=== PATIENT | female | born 1930 | race Caucasian/White ===

== ENCOUNTER → 2017-10-05 | Outpatient (CLI) | payer OTHER ==
[2017-10-05 18:26] LABS: BASOPHILS # (AUTO) 0.1 X10^3/uL (0.0-0.1); BASOPHILS % (AUTO) 0.5 % (0.2-1.0); EOSINOPHILS # (AUTO) 0.2 x10^3/uL (0.0-0.2); EOSINOPHILS % (AUTO) 1.4 % (0.9-2.9); HEMATOCRIT 36.5 % (36.0-47.0); LYMPHOCYTES # (AUTO) 1.4 X10^3/uL (1.3-2.9); LYMPHOCYTES % (AUTO) 11.3 % (21.0-51.0); MEAN CORPUSCULAR HEMOGLOBIN 29.7 pg (27.0-34.0); MEAN CORPUSCULAR HGB CONC 32.8 g/dL (33.0-35.0); MEAN CORPUSCULAR VOLUME 90.5 fL (80.0-100.0); MEAN PLATELET VOLUME 8.1 fL (7.4-11.0); MONOCYTES # (AUTO) 1.1 x10^3/uL (0.3-0.8); MONOCYTES % (AUTO) 8.5 % (0.0-13.0); NEUTROPHILS # (AUTO) 10.1 x10^3/uL (2.2-4.8); NEUTROPHILS % (AUTO) 78.3 % (42.0-75.0); PLATELET COUNT 219 X10^3/uL (150.0-450.0); RED BLOOD COUNT 4.03 X10^6/uL (3.5-5.4); RED CELL DISTRIBUTION WIDTH 13.4 % (11.6-16.5); WHITE BLOOD COUNT 12.9 X10^3/uL (3.6-10.0)
[2017-10-05 18:34] LABS: ALANINE AMINOTRANSFERASE 21 Units/L (12-78); ALBUMIN 4.2 g/dL (3.4-5.0); ALKALINE PHOSPHATASE 61 Units/L (46-116); ASPARTATE AMINO TRANSFERASE 22 Units/L (15-37); BLOOD UREA NITROGEN 11 mg/dL (7-18); CALCIUM 9.8 mg/dL (8.5-10.1); CARBON DIOXIDE 26.6 mmol/L (21-32); CHLORIDE 102 mmol/L (98-107); COR NA(FOR HYPERGLY) 140 mmol/L (136-145); CREATININE 1.15 mg/dL (0.55-1.02); SODIUM 139 mmol/L (136-145); TOTAL PROTEIN 8.4 g/dL (6.4-8.2); eGFR BLACK RACES 57 (>60); eGFR NON BLACK RACES 47 (>60)
[2017-10-05 18:52] LABS: HEMOGLOBIN A1C 6.2 % (4.5-6.2)
[2017-10-05 19:00] LABS: ERYTHROCYTE SEDIMENTATION RATE 34 MM/HOUR (0-20)
[2017-10-05 19:46] LABS: MYCOPLASMA PNEUMONIAE IGM AB NEGATIVE (NEGATIVE)
--- NOTE | 2017-10-06 06:01 | RAD ---
Examination: Chest, PA and lateral views History: SOB, COPD Comparison reference: None Findings: The heart is upper normal in both diameters, the aorta dilated. Pulmonary vessels are promi nent with a diffuse interstitial increase throughout the lungs. There is no evidence for consolidati on, pneumothorax or pleural fluid. Impression: Upper normal heart size with arteriosclerotic aorta, pulmonary vascular congestion. The d iffuse interstitial prominence may reflect chronic peribronchial thickening. Reported By:
== END | disposition home or self-care (01) | DRG 192 ==
LOC: RAD 17:42
PROVIDERS: ATTEND Nurse Practitioner Family
DX: J44.1 Chronic obstructive pulmonary disease with (acute) exacerbation (principal); R09.89 Other specified symptoms and signs involving the circulatory and respiratory systems
CPT/HCPCS: 36415; 71020; 80053; 83036; 85025; 85652; 86140; 86738; 87040; 87070; 87205

== ENCOUNTER → 2018-03-09 | Outpatient (CLI) | payer OTHER, MEDICAID ==
--- NOTE | 2018-03-09 16:53 | RAD ---
History: Left knee pain Study: AP and lateral left knee Comparison: None Findings: There is medial joint space compartment narrowing without significant osteophyte formation. There is no fracture or subluxation or significant joint effusion. Impression: Medial joint space compartment narrowing, otherwise unremarkable Reported By:
--- NOTE | 2018-03-09 16:54 | RAD ---
HISTORY: Knee pain. Weakness. Study: Right knee: Two views Comparison: None Findings: Moderate joint space narrowing is noted in the medial compartment. Minimal spurring is noted mediall y and laterally as well as in the patellofemoral compartment. Mild spiking of the tibial spines is n oted. Mild vascular calcification is noted. IMPRESSION: 1. 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 2. No acute bony abnormalities are identified. Reported By:
[2018-03-13 08:30] LABS: ANTI-NUCLEAR ANTIBODY TEST None Detected (None Detected)
== END ==
LOC: LAB 16:18
PROVIDERS: ATTEND Psychiatry & Neurology Neurology
DX: R29.898 Other symptoms and signs involving the musculoskeletal system (principal)
CPT/HCPCS: 36415; 73560; 84550; 85652; 86308